=== PATIENT | male | born 2000 | race Caucasian/White ===

== ENCOUNTER 2023-02-01 23:56 | Emergency (ER) | payer OTHER ==
[~2023-02-01] VITALS: Ht 177.8 cm; Wt 99.8 kg
[~2023-02-01 23:56] MED LIST: AUGMENTIN ES-6100 ML PO; CLARITIN5 MG/5 ML PO; TOBRADEX 0.1%-0.5 ML OPH; ZITHROMAX200 MG/51 PO; Zithromax200 MG/5 M PO
== END 2023-02-02 00:38 | disposition home or self-care (01) ==
LOC: ED 23:56
DX: S93.601A Unspecified sprain of right foot, initial encounter (principal); X50.9XXA Other and unspecified overexertion or strenuous movements or postures, initial encounter; Y93.89 Activity, other specified; Y92.89 Other specified places as the place of occurrence of the external cause; Y99.8 Other external cause status